=== PATIENT | male | born 1985 | race Caucasian/White ===

== ENCOUNTER 2017-05-02 18:49 | Emergency (ER) | payer OTHER ==
[~2017-05-02] VITALS: Ht 167.6 cm; Wt 61.2 kg
[2017-10-16] MEDS ORDERED: MOBIC15 MG PO (01:57)
[2017-10-16] MEDS ORDERED: TOBRAMYCIN SULFA5 M1 OPHTHALMIC (01:57)
== END 2017-05-02 20:00 | disposition home or self-care (01) ==
LOC: ER 18:49
DX: H43.11 Vitreous hemorrhage, right eye (principal); Z88.6 Allergy status to analgesic agent